=== PATIENT | female | born 1950 | race Caucasian/White ===

== ENCOUNTER → 2017-03-30 | Outpatient (CLI) | payer MEDICARE, OTHER | END | disposition home or self-care (01) | LOC: GMAH 14:50 | PROVIDERS: ATTEND Family Medicine | DX: N30.00 Acute cystitis without hematuria (principal) ==

== ENCOUNTER → 2017-05-11 | Outpatient (CLI) | payer MEDICARE, OTHER | LOC: GMA 20:39 | PROVIDERS: ATTEND Nurse Practitioner Family | DX: N30.00 Acute cystitis without hematuria (principal) ==

== ENCOUNTER → 2018-06-20 | Outpatient (CLI) | payer MEDICARE, OTHER | LOC: LAB.O 12:51 | PROVIDERS: ATTEND Ophthalmology | DX: M35.9 Systemic involvement of connective tissue, unspecified (principal); H20.012 Primary iridocyclitis, left eye ==

== ENCOUNTER → 2019-08-15 | Outpatient (CLI) | payer MEDICARE, OTHER ==
--- NOTE | 2019-08-15 16:16 | US ---
Thyroid Biopsy, Image-Guided: Biopsy of Thyroid: Ultrasound CLINICAL INFORMATION: 69 years Female. Nodule right lobe. COMPARISON: None. TECHNIQUE: Procedure was explained to the patient with risks and benefits. The patient gave verbal and written consent. Sterile preparation draping. 1% xylocaine dermal anesthetic 9-1 mixture with sodium bicarbonate. Sterile ultrasound guidance. A total of 6 passes right lobe thyroid nodule.; 4 needle samplings, 2 without and 2 with 10 cc syringe aspiration, using a separate 1.5 inch, 25-gauge needle per sample, and 2 aspirations, with a separate 1.5 inch, 25-gauge needle/10-cc syringe set, per aspiration. Each sample was placed on a separate slide and fixed in 95% alcohol container. [place] fluid drawn into aspirate needle and rinse injected into [place] container. Specimens to be sent for pathologic examination at remote facility. . Patient tolerated procedure well. Biopsy #: 1 Nodule reference number based on prior diagnostic ultrasound:1 Maximum size: 1.6 cm Location: right; mid ACR TI-RADS risk category: TR4 (4-6 points) Reason for biopsy: meets ACR TI-RADS criteria Complications: None. FINDINGS: Multiple images demonstrate the echogenic needle within the nodule/mass during sampling and aspirations. IMPRESSION: Successful ultrasound guided fine needle aspiration of right thyroid nodule. ACR TI-RADS Risk Category TR 4 Electronically signed by: Yohannes Penaloza MD 08/15/2019 4:15 PM CDT
== END ==
LOC: US 10:53
PROVIDERS: ATTEND Family Medicine
DX: E04.1 Nontoxic single thyroid nodule (principal)

== ENCOUNTER 2019-10-04 20:31 | Inpatient (IN) | payer MEDICARE, OTHER ==
[2019-10-04] MEDS ORDERED: MORPHINE SULFATE INJ 10 MG/ML VIAL IV ONE (20:45)
[2019-10-04] MEDS ORDERED: ONDANSETRON INJ 4 MG/2 ML VIAL IV ONE (20:46)
--- NOTE | 2019-10-04 21:32 | RAD ---
EXAM DESCRIPTION: Pelvis CLINICAL HISTORY: 69 years Female, pain s/p fall COMPARISON: None. FINDINGS: There is a mildly impacted left femoral neck fracture. No other bony or articular abnormalities noted. There is increased stool the colon. IMPRESSION: 1. Left femoral neck fracture. Electronically signed by: David Gann MD 10/04/2019 9:30 PM CDT
--- NOTE | 2019-10-04 21:32 | RAD ---
EXAM DESCRIPTION: Hip,Left 2 Views CLINICAL HISTORY: 69 years Female, left hip pain s/p fall COMPARISON: None. FINDINGS: There is a mildly impacted femoral neck fracture. The soft tissues are unremarkable. IMPRESSION: 1. Mildly impacted femoral neck fracture. Electronically signed by: David Gann MD 10/04/2019 9:31 PM CDT
--- NOTE | 2019-10-04 21:33 | RAD ---
EXAM DESCRIPTION: Chest,1 View CLINICAL HISTORY: 69 years Female, fall COMPARISON: None. FINDINGS: The heart and mediastinum are within normal limits. The lung torre are clear of active infiltrates. The pulmonary vascularity is unremarkable. No active pleural disease is present. The bony structures appear intact. IMPRESSION: 1. Normal study. Electronically signed by: David Gann MD 10/04/2019 9:31 PM CDT
--- NOTE | 2019-10-04 21:53 | ED.PDOC ---
History of Present Illness - General Chief Complaint: Trauma Stated Complaint: fall, left hip pain Time Seen by Provider: 10/04/19 20:41 Source: patient, RN notes reviewed, Vital Signs reviewed, family Exam Limitations: no limitations - History of Present Illness Initial Comments: The patient is a 69 year old with PMH as below who presents to the ED complaining of left hip pain. she was walking through her house when she tripped and fell, landed on her left hip. She has not been ambulatory since that time due to hip pain. She denies hitting her head or loss of consciousness. No weakness, numbness or tingling. No other complaints or injuries. Allergies/Adverse Reactions: Allergies Iodine Allergy (Verified 10/04/19 20:52) Nitrofurantoin [From Macrobid] Allergy (Verified 10/04/19 20:52) Home Medications: Ambulatory Orders Ciprofloxacin [Cipro] 250 mg PO DAILY 10/04/19 Esomeprazole Magnesium [Nexium] 20 mg PO DAILY 10/04/19 Ibuprofen [Motrin] 400 mg PO PRN 10/04/19 Multiple Vitamins W/ Minerals [Multivitamin Adults] 1 tab PO DAILY 10/04/19 Nebivolol HCl [Bystolic] 5 mg PO DAILY 10/04/19 Review of Systems - Review of Systems Constitutional: Denies: chills, fever, weakness EENTM: Denies: eye pain, blurred vision Respiratory: Denies: cough, short of breath Cardiology: Denies: chest pain, edema, palpitations Gastrointestinal/Abdominal: Denies: abdominal pain, diarrhea, nausea, vomiting Genitourinary: Denies: discharge, dysuria, frequency Musculoskeletal: States: joint pain, muscle pain. Denies: back pain, muscle stiffness Skin: States: no symptoms reported Neurological: Denies: tingling, weakness Endocrine: States: no symptoms reported Hematologic/Lymphatic: States: no symptoms reported Past Medical History (General) - Patient Medical History Hx Seizures: No Hx Stroke: No Hx Dementia: No Hx Asthma: No Hx of COPD: No Hx Cardiac Disorders: No Hx Congestive Heart Failure: No Hx Pacemaker: No Hx Hypertension: Yes Hx Thyroid Disease: No Hx Diabetes: No Hx Gastroesophageal Reflux: Yes Hx Renal Disease: No Hx Cancer: No Hx of HIV: No Hx Hepatitis C: No Hx MRSA: No - Vaccination History Hx Tetanus, Diphtheria Vaccination: No Hx Influenza Vaccination: No Hx Pneumococcal Vaccination: No - Social History Hx Tobacco Use: No Hx Alcohol Use: No Family Medical History - Family History Mother Family History: Unknown Physical Exam - Physical Exam General Appearance: Alert, Obvious distress Ears, Nose, Throat: hearing grossly normal Neck: non-tender, full range of motion, supple, normal inspection Respiratory: no respiratory distress, no accessory muscle use Cardiovascular/Chest: regular rate, rhythm Peripheral Pulses: dorsalis pedis,left: 2+ Gastrointestinal/Abdominal: non tender, soft Rectal Exam: deferred Back Exam: no CVA tenderness, no vertebral tenderness Extremity: other - tenderness to left hip, ROM is limited by pain Neurologic: no motor/sensory deficits, alert, oriented x 3 Progress - Progress Progress: 10/04/19 21:54 Patient with trip and fall, workup as below. No head injury. No c-spine tenderness. There is impacted femoral neck fracture of the left hip. Will plan to admit for surgical repair. 10/04/19 22:[address] Matias (ortho) who requests admit to hospitalist and he will consult for operative repair. Discussed with hospitalist Denzel Camacho who will admit. - Results/Orders Results/Orders: 10/04/19 21:09 EKG Assessment ONCE 10/04/19 21:15 EKG STAT Laboratory Results - last 24 hr 10/04/19 10/04/19 21:30 21:30 WBC 6.5 RBC 4.74 Hgb 13.4 Hct 40.2 MCV 84.9 MCH 28.3 MCHC 33.3 RDW 13.7 Plt Count 201 MPV 6.9 L Absolute Neuts (auto) 3.50 Absolute Lymphs (auto) 2.10 Absolute Monos (auto) 0.50 Absolute Eos (auto) 0.40 Absolute Basos (auto) 0.10 Neutrophils % 54.1 Lymphocytes % 32.2 Monocytes % 7.0 Eosinophils % 5.9 H Basophils % 0.8 Sodium 135 Potassium 3.5 L Chloride 102 Carbon Dioxide 24 Anion Gap 12.5 BUN 13 Creatinine 0.74 BUN/Creatinine Ratio 17.6 Random Glucose 94 Serum Osmolality 270.0 L Calcium 9.2 Total Bilirubin 0.4 AST 23 ALT 16 Alkaline Phosphatase 52 Serum Total Protein 7.0 Albumin 4.0 Globulin 3.0 Albumin/Globulin Ratio 1.3 - EKG/XRAY/CT Comments: 2119 NSR at 76, left axis, nl intervals, no STEMI Xray Comments: impacted left femoral neck fracture Departure - Departure Clinical Impression: Fracture of femur Qualifiers: Encounter type: initial encounter Femur location: neck, unspecified portion Fracture type: closed Laterality: left Qualified Code(s): S72.002A - Fracture of unspecified part of neck of left femur, initial encounter for closed fracture Time of Disposition: 22:32 Disposition: Admit Patient Condition: Fair Departure Forms: ED Discharge - Pt. Copy, Patient Portal Self Enrollment Instructions: DI for Trauma Referrals: Emery Gee MD [Primary Care Provider] - 1-2 Weeks Home Medications: Ambulatory Orders Ciprofloxacin [Cipro] 250 mg PO DAILY 10/04/19 Esomeprazole Magnesium [Nexium] 20 mg PO DAILY 10/04/19 Ibuprofen [Motrin] 400 mg PO PRN 10/04/19 Multiple Vitamins W/ Minerals [Multivitamin Adults] 1 tab PO DAILY 10/04/19 Nebivolol HCl [Bystolic] 5 mg PO DAILY 10/04/19 Decision To Admit - Decistion To Admit Decision to Admit Reason: Admit from ER Decision to Admit Date: 10/04/19 Decision to Admit Time: 22:33
[2019-10-05] MEDS ORDERED: SODIUM CHLORIDE 0.9% (FLUSH) 10 ML SYG IV PRN ×2 (00:07)
[2019-10-05] MEDS ORDERED: ONDANSETRON INJ 4 MG/2 ML VIAL IV PRN (00:12)
[2019-10-05] MEDS ORDERED: MORPHINE SULFATE INJ 10 MG/ML VIAL IV PRN (00:12)
[2019-10-05] MEDS ORDERED: ACETAMINOPHEN IV 1000MG 1,000 MG in PREMIX BOTTLE 1 BOTTLE IVPB ONE (00:17)
[2019-10-05] MEDS ORDERED: ACETAMINOPHEN IV 1000MG 100 ML ONE (00:27)
[2019-10-05] MEDS ORDERED: IV SET AND CAP CHANGE INJ INJ SCH ×2 (00:30→18:30)
[2019-10-05] MEDS: LACTATED RINGERS 1,000 ML IVS PRN ×2 (00:32→08:36)
[2019-10-05] MEDS: IV SET AND CAP CHANGE INJ INJ SCH (00:40)
[2019-10-05] MEDS ORDERED: PANTOPRAZOLE SODIUM IV 40 MG VIAL IV SCH (06:30)
[2019-10-05] MEDS ORDERED: ePHEDrine SULF 50 MG/ML ONE (07:00)
[2019-10-05] MEDS ORDERED: diphenhydrAMINE HCL 50 MG/ML VIAL ONE (07:00)
[2019-10-05] MEDS ORDERED: PROPOFOL 200 MG/20 ML VIAL IV ONE (07:00)
[2019-10-05] MEDS ORDERED: MAGNESIUM SULFATE INJ 1 GM/2 ML VIAL ONE (07:00)
[2019-10-05] MEDS ORDERED: METOCLOPRAMIDE HCL INJ 10 MG/2 ML VIAL ONE (07:00)
[2019-10-05] MEDS ORDERED: EPINEPHrine HCL AMP 1 MG/ML AMP ONE (07:00)
[2019-10-05] MEDS ORDERED: SODIUM CHLORIDE 0.9% 50 ML VIAL ONE (07:00)
[2019-10-05] MEDS ORDERED: DEXAMETHASONE INJ 10 MG/ML VIAL ONE (07:00)
[2019-10-05] MEDS ORDERED: GLYCOPYRROLATE 0.2 MG/ML VIAL ONE (07:00)
[2019-10-05] MEDS ORDERED: NEBIVOLOL 2.5 MG TAB ONE (08:34)
[2019-10-05] MEDS ORDERED: NON-FORMULARY MEDICATION 1 EA MIS (Esomeprazole Magnesium [Nexium] 40 MG) PO SCH (09:00)
[2019-10-05] MEDS ORDERED: NON-FORMULARY MEDICATION 1 EA MIS (Nebivolol Hcl [Bystolic] 5 MG) PO SCH (09:00)
--- NOTE | 2019-10-05 09:58 | HP ---
SUPERVISING PHYSICIAN: Celestino Rai MD CHIEF COMPLAINT: Left hip pain. HISTORY OF PRESENT ILLNESS: Ms. Vasquez is a 69-year-old female patient who presented to the Emergency Room last night complaining of left hip pain. She endorses she was walking in her house when she tripped and fell over a rug and landed on her left hip. She felt a pop and instant pain and was not able to ambulate. She denied any other trauma, no loss of consciousness, no head trauma, no weakness, no numbness or tingling. On arrival to the Emergency Room, workup included a hip x-ray that showed a mildly impacted left femoral neck fracture. Laboratory studies were unremarkable except for just a mildly low potassium of 3.5. Dr. Matias was consulted by the ER physician and has requested the patient be admitted for a hemiarthroplasty procedure to be performed 10/05/19. The patient is admitted in stable condition. PAST MEDICAL HISTORY: 1. Hypertension. 2. Gastroesophageal reflux disease. 3. Chronic urinary tract infections on ciprofloxacin. PAST SURGICAL HISTORY: 1. Esophageal [place] [address] Sotomayor. HOME MEDICATIONS: 1. Nexium 40 mg daily. 2. Cipro 250 mg daily. 3. Bystolic 5 mg daily. 4. Multivitamin 1 daily. 5. Motrin 400 mg p.r.n. ALLERGIES: IODINE, NITROFURANTOIN. FAMILY HISTORY: Father at age 73 secondary to myocardial infarction. Mother at age 56 secondary to cancer of the esophagus. She has one sister and multiple half brothers and sisters. SOCIAL HISTORY: The patient is . 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 She lives in [place] by herself. She has never smoked tobacco and drinks on a rare occasion. REVIEW OF SYSTEMS: CONSTITUTIONAL: Negative for any fevers, chills, general malaise or unexplained weight loss. HEENT: Negative for headaches, sore throats, earaches, nasal congestion, vision changes. RESPIRATORY: Negative for shortness of breath, wheezing or coughing. CARDIOVASCULAR: Negative for chest pain, palpitations or syncopal episodes. GASTROINTESTINAL: Negative for nausea, vomiting, diarrhea, constipation or abdominal pain. GENITOURINARY: History of frequent urinary tract infections, but denies any current dysuria, hematuria, polyuria. MUSCULOSKELETAL: As noted in history of present illness, left hip pain. Denies any back pain. SKIN: Negative for lesions or unexplained changes. NEUROLOGIC: Negative for paresthesias, weakness, ataxia, seizures or other neurologic deficits. HEMATOLOGIC: Negative for easy bruising, unexplained bleeding or transfusion reactions. PHYSICAL EXAMINATION: VITAL SIGNS: Temperature 98.3, pulse 81, blood pressure 125/72, respirations 18, saturation 99% on room air. GENERAL: The patient is resting comfortably and does not appear to be in any acute distress. She just received pain management. She is alert. HEENT: Tympanic membranes clear bilaterally. Oropharynx is pink, moist without any lesions. NECK: Supple, nontender with full range of motion. No jugular venous distention noted. RESPIRATORY: Lung sounds are clear to auscultation bilaterally without any rhonchi, wheezes or rales. CARDIOVASCULAR: Regular rate and rhythm without any appreciable murmurs, gallops, or rubs. ABDOMEN: Soft, nontender. Positive bowel sounds. RECTAL: Deferred. BACK: No CVA tenderness, no vertebral tenderness. EXTREMITIES: Tenderness to the left hip with range of motion limited by pain. No obvious shortening, medial or lateral rotation. Distally, pulses are strong. Capillary refill is brisk. NEUROLOGIC: Cranial nerves II-XII are grossly intact. The patient is alert and oriented times three. LABORATORY: CBC showed white count 6,500, hemoglobin 13.4, hematocrit 40.2, platelet count 201,000. Differential was without a left shift. Coagulation studies showed normal PT, PTT. Chemistries showed mildly low potassium of 3.5, otherwise electrolytes are within normal limits. Creatinine 0.74. Liver functions within normal limits. Glucose 94. Urinalysis showed trace of lysed blood. MICROBIOLOGY: No specimens are submitted. RADIOLOGY: Hip x-ray, pelvis x-ray demonstrated a mildly impacted left femoral neck fracture. Chest x-ray showed no abnormalities per radiologic interpretation. ASSESSMENT: 1. Status post ground level fall resulting in left hip fracture. 2. Hypertension. 3. Gastroesophageal reflux disease. 4. History of chronic urinary tract infections on ciprofloxacin. PLAN: Ms. Vasquez is going to be admitted for consultation with orthopedic services with Dr. Matias with anticipation of doing hemiarthroplasty the morning after admission. We will have her on pain control with morphine. I will go ahead and give her IV Tylenol initially to get good pain control. She will have antiemetics with Zofran and Phenergan as needed. We will review her medications and resume those as appropriate to her care. She is NPO overnight. We anticipate length of stay to be at least two to three days. Until the patient can transition to outpatient management, we will continue to monitor and treat as needed. #[id number] [facility]
[2019-10-05] MEDS ORDERED: BUPIVACAINE 0.5% 30 ML VIAL INJ ONE (10:19)
[2019-10-05] MEDS ORDERED: BUPIVACAINE LIPOSOME 13.3 MG/ML VIAL INJ ONE (10:20)
[2019-10-05] MEDS ORDERED: ceFAZolin SODIUM 2 GM in SODIUM CHLORIDE 0.9% 100ML 100 ML IVPB ONE (11:00)
[2019-10-05] MEDS ORDERED: VANCOMYCIN HCL INJ 1,000 MG in SODIUM CHLORIDE 0.9% 250ML 250 ML IVPB ONE (11:00)
[2019-10-05] MEDS ORDERED: KETAMINE HCL 100 MG/ML VIAL ONE (11:15)
[2019-10-05] MEDS ORDERED: MIDAZOLAM INJ 2 MG/2 ML VIAL ONE (11:15)
[2019-10-05] MEDS ORDERED: HYDROmorphone HCL INJ 2 MG/ML VIAL ONE (11:16)
[2019-10-05] MEDS ORDERED: VANCOMYCIN HCL INJ 1,000 MG VIAL IVPB ONE ×2 (11:30→18:56)
[2019-10-05] MEDS ORDERED: ceFAZolin SODIUM 1 GM VIAL IVPB ONE (11:45)
[2019-10-05] MEDS: ceFAZolin SODIUM 1 GM VIAL ONE ×3 (12:22→13:33)
[2019-10-05] MEDS: VANCOMYCIN HCL INJ 1,000 MG VIAL IVPB ONE ×2 (12:23→13:33)
[2019-10-05] MEDS ORDERED: ELECTROLYTE-A 1,000 ML IVS ONE ×2 (12:46→14:02)
--- NOTE | 2019-10-05 14:57 | RAD ---
EXAM DESCRIPTION: Pelvis CLINICAL HISTORY: 69 years Female, post op alexandr COMPARISON: 10/04/2019. TECHNIQUE: AP radiograph of the pelvis was performed. FINDINGS: Changes of left total hip arthroplasty are noted in the interim. Mild osteoarthritis of the right hip. The pelvic ring is intact. IMPRESSION: Changes of left total hip arthroplasty are noted in the interim. Mild osteoarthritis of the right hip. Electronically signed by: Donna Barr MD 10/05/2019 2:56 PM CDT
--- NOTE | 2019-10-05 14:58 | RAD ---
EXAM DESCRIPTION: Hip,Left 2 Views CLINICAL HISTORY: 69 years Female, post op alexandr COMPARISON: Radiographs of left hip dated 10/04/2019. FINDINGS: Changes of left total hip arthroplasty with expected postsurgical changes in the surrounding soft tissues. IMPRESSION: Changes of left hip arthroplasty with expected postsurgical changes in the surrounding soft tissues. Electronically signed by: Donna Barr MD 10/05/2019 2:56 PM CDT
[2019-10-05] MEDS ORDERED: VANCOMYCIN HCL INJ 1,000 MG in SODIUM CHLORIDE 0.9% 250ML 250 ML IVPB SCH (17:32)
[2019-10-05] MEDS ORDERED: ENOXAPARIN SODIUM 30 MG/0.3 ML SYG SUBCU SCH (17:32)
[2019-10-05] MEDS ORDERED: PROMETHAZINE HCL INJ 12.5 MG in SODIUM CHLORIDE 0.9% 50ML 50 ML IVPB PRN (18:03)
[2019-10-05] MEDS ORDERED: MORPHINE SULFATE INJ 10 MG/ML VIAL IM PRN (18:03)
[2019-10-05] MEDS ORDERED: PROMETHAZINE HCL INJ 25 MG in SODIUM CHLORIDE 0.9% 50ML 50 ML IVPB PRN (18:03)
[2019-10-05] MEDS ORDERED: ACETAMINOPHEN 500 MG TAB PO PRN (18:03)
[2019-10-05] MEDS: diphenhydrAMINE HCL 50 MG/ML VIAL IV PRN (18:17)
[2019-10-05] MEDS ORDERED: ceFAZolin SODIUM 1 GM VIAL ONE (18:56)
[2019-10-05] MEDS ORDERED: SODIUM CHLORIDE 0.9% 100ML 100 ML IVPB ONE (18:57)
[2019-10-05] MEDS ORDERED: SODIUM CHLORIDE 0.9% 250ML 250 ML ONE (18:57)
[2019-10-05] MEDS: ceFAZolin SODIUM 2 GM in SODIUM CHLORIDE 0.9% 100ML 100 ML IVPB SCH (19:37)
[2019-10-05] MEDS: ENOXAPARIN SODIUM 30 MG/0.3 ML SYG SUBCU SCH (20:47)
[2019-10-05] MEDS: VANCOMYCIN HCL INJ 1,000 MG in SODIUM CHLORIDE 0.9% 250ML 250 ML IVPB SCH (20:47)
[2019-10-05] MEDS: DOCUSATE CALCIUM 240 MG CAP PO SCH (20:47)
[2019-10-06] MEDS: diphenhydrAMINE HCL 50 MG/ML VIAL IV PRN ×3 (00:09→11:01)
[2019-10-06] MEDS ORDERED: hydrOXYzine HCl 10 MG TAB PO ONE (01:58)
[2019-10-06] MEDS: HYDROcodone 5MG/APAP 325MG 1 EA TAB PO PRN ×5 (02:18→21:14)
[2019-10-06] MEDS: ceFAZolin SODIUM 2 GM in SODIUM CHLORIDE 0.9% 100ML 100 ML IVPB SCH ×2 (03:42→14:33)
[2019-10-06] MEDS ORDERED: OMEPRAZOLE CAP 20 MG CAP ONE (05:10)
[2019-10-06] MEDS: OMEPRAZOLE CAP 20 MG CAP PO SCH (06:01)
[2019-10-06] MEDS ORDERED: NEBIVOLOL 2.5 MG TAB ONE (07:27)
--- NOTE | 2019-10-06 08:14 | OP ---
DATE OF PROCEDURE: 10/04/19 PREOPERATIVE DIAGNOSIS: 1. Left hip femoral neck fracture. POSTOPERATIVE DIAGNOSIS: 1. Left hip femoral neck fracture. PROCEDURE: 1. Left hemiarthroplasty. SURGEON: Agustin Matias MD. DREDGE OR BARGE SHORE HAND: Yohannes Mayes CST, SA-C. ANESTHESIA: General anesthesia. COMPLICATIONS: None. FINDINGS: Transcervical femoral neck fracture with no evidence of significant arthritis of the acetabulum. She had very osteoporotic bone with very thin shell of bone proximally. INDICATION: Ms. Vasquez had a fall from standing in which she sustained acute onset of pain in the hip. She was taken to the Emergency Room and x-rays revealed a transcervical neck fracture. Because of that, she was admitted and I had discussed with her the possibility of treatment. We discussed a total hip arthroplasty versus a hemiarthroplasty. We discussed the risks and benefits of each with the potential for cementation of prosthesis based on the quality of the bone. Because of the lack of arthritis and the somewhat less invasive nature of the hemiarthroplasty, she did give informed consent and requested that. PROCEDURE: The patient was brought to the Operating Room and placed in supine position. Anesthesia was induced and the patient was transitioned into the lateral decubitus position. The leg and hemipelvis were sterilely prepped and draped and an incision was made centered on the greater trochanter with extension both proximally and distally. Dissection was carried down to the iliotibial band which was sharply incised along the course of its fibers. A Charnley retractor was placed and the abductor musculature was identified. The anterior one-third of the abductor musculature was elevated off the greater trochanter using electrocautery and the capsule was incised. The femoral head was removed and the primary femoral neck cut was made. The acetabulum was examined and found to be free of any significant defect, therefore attention was focused on the femur. The femoral canal was sequentially broached until an appropriate sized trial prosthesis was placed. A trial femoral head was placed and the hip was reduced. The hip was taken through a full range of motion and demonstrated stability without impingement or pending dislocation and the leg length appeared to be paresthesias. Following trialing, the trial component was removed and the femoral canal was prepared for cementation of the prosthesis. A distal cement restrictor was placed and the final component was cemented into place. The excess cement was removed and the remaining cement was allowed to cure. The final head was impacted and the hip was reduced, taken through a full range of motion, and found to be stable without impingement. The wound was thoroughly irrigated and the abductor musculature was reapproximated to the greater trochanter through drill holes using Ethibond. The repair was augmented with PDS suture and the iliotibial band was subsequently closed. The subcutaneous tissues were closed with a combination of running and interrupted subcuticular stitches, a sterile dressing was placed, and the patient was transitioned into the supine position. The patient was awoken from anesthesia and taken to the Recovery Room in stable condition. POSTOPERATIVE PLAN: The patient will be weightbearing as tolerated on postoperative day 1. [facility][id number] [facility]
[2019-10-06] MEDS: CELECOXIB 100 MG CAP PO SCH ×2 (08:31→17:23)
[2019-10-06] MEDS: MAGNESIUM OXIDE 400 MG TAB PO SCH (08:32)
[2019-10-06] MEDS: NEBIVOLOL 2.5 MG TAB PO SCH (08:32)
[2019-10-06] MEDS: ENOXAPARIN SODIUM 30 MG/0.3 ML SYG SUBCU SCH ×2 (08:32→21:04)
[2019-10-06] MEDS: VANCOMYCIN HCL INJ 1,000 MG in SODIUM CHLORIDE 0.9% 250ML 250 ML IVPB SCH (08:33)
--- NOTE | 2019-10-06 14:18 | PN ---
SUPERVISING PHYSICIAN: Celestino Rai MD DATE: 10/06/19 SUBJECTIVE: The patient did well yesterday postoperative. She had a hemiarthroplasty done. She is sitting in a chair today, the pain is well- contracted. OBJECTIVE: VITAL SIGNS: Temperature 97.6, pulse 86, blood pressure 117/51 respirations are 18, oxygen saturation 99% on 2 liters nasal cannula. GENERAL: Patient is resting comfortably. Does not appear to be in acute distress. CHEST: Clear to auscultation. HEART: Regular rate and rhythm. ABDOMEN: Soft, nontender, positive bowel sounds. EXTREMITIES: Left hip has dressing place, clean and dry. Capillary refill is brisk. Pulses are strong. NEUROLOGIC: Alert and oriented x3. LABORATORY: Postoperative hemoglobin 10.8, hematocrit 32.3. ASSESSMENT: 1. Left hip fracture with hemiarthroplasty repair status post ground level fall. 2. Hypertension, stable. 3. Gastroesophageal reflux disease. 4. History of chronic urinary tract infections on ciprofloxacin. PLAN: We will continue to follow the patient as she continues with her postoperative management and rehabilitation efforts. At this point, we will discharge either tomorrow or Wednesday. She will continue with physical therapy and Home Health through [facility] once discharged. She will remain on DVT prophylaxis and transition to Xarelto on discharge. Her home medications have been resumed. She is tolerating her diet. I have encouraged good bronchial hygiene. Until we can transition her to outpatient management, we will continue to monitor and treat as needed #[id number] [facility]
[2019-10-06] MEDS: DOCUSATE CALCIUM 240 MG CAP PO SCH (21:04)
[2019-10-07] MEDS: HYDROcodone 5MG/APAP 325MG 1 EA TAB PO PRN ×3 (01:08→18:01)
[2019-10-07] MEDS: OMEPRAZOLE CAP 20 MG CAP PO SCH (06:03)
[2019-10-07] MEDS: CELECOXIB 100 MG CAP PO SCH ×2 (07:36→17:02)
[2019-10-07] MEDS: NEBIVOLOL 2.5 MG TAB PO SCH (08:33)
[2019-10-07] MEDS: MAGNESIUM OXIDE 400 MG TAB PO SCH (08:33)
[2019-10-07] MEDS: ENOXAPARIN SODIUM 30 MG/0.3 ML SYG SUBCU SCH ×2 (08:34→21:06)
[2019-10-07] MEDS: CIPROFLOXACIN 250 MG TAB PO SCH (10:11)
--- NOTE | 2019-10-07 11:47 | PN ---
DATE: 10/06/19 SUBJECTIVE: The patient is doing well on her pain as well as control. OBJECTIVE: She is afebrile. Vital signs shoaib stable. Dressing is clean, dry and intact. ASSESSMENT: Status post hemiarthroplasty for hip fracture. PLAN: At this point she is to begin weightbearing as tolerated. [facility][id number] [facility]
--- NOTE | 2019-10-07 11:50 | PN ---
DATE: 10/07/19 SUBJECTIVE: The patient is doing well and her pain is well controlled. She is up to a chair at this time. OBJECTIVE: She is afebrile. Vital signs shoaib stable. Her wound is clean, there are no signs or symptoms of infection. ASSESSMENT: Status post hemiarthroplasty for hip fracture. PLAN: At this point she is to continue on with her weightbearing as tolerated status. She will be discharged tomorrow. #[id number] [facility]
--- NOTE | 2019-10-07 13:01 | PN ---
SUPERVISING PHYSICIAN: Celestino Rai MD DATE: 10/07/19 SUBJECTIVE: The patient is doing well today. Said her pain is controlled with just [place]. She had a little bit of nausea with breakfast that resolved without any intervention. She has not had any complaints of shortness of breath or chest pain. OBJECTIVE: VITAL SIGNS: Temperature 98.9, pulse 89, blood pressure 172/80 respirations are 18, oxygen saturation 94% on room air. . GENERAL: Patient is resting comfortably. Does not appear to be in acute distress. CHEST: Clear to auscultation bilaterally. HEART: Regular rate and rhythm. ABDOMEN: Soft, nontender, positive bowel sounds. EXTREMITIES: Without any edema. Left hip has dressing in place which is clean and dry. Distal pulses are strong. Capillary refill is brisk. NEUROLOGIC: Alert and oriented x3. LABORATORY: No laboratory to report. . ASSESSMENT: 1. Left hip fracture with hemiarthroplasty repair status post ground level fall, postoperative day #2. 2. Hypertension, stable. 3. Gastroesophageal reflux disease. 4. History of chronic urinary tract infections on ciprofloxacin. PLAN: We will continue with postoperative management with physical therapy and rehabilitation. She is progressing well. I anticipate discharge tomorrow. She will go home on DVT prophylaxis with Xarelto. Dr. Matias has written her a prescription for [place]. Until we can transition her to outpatient management, we will continue physical therapy through [facility] and continue to monitor and treat as needed #[id number] [facility]
[2019-10-07] MEDS: CYCLOBENZAPRINE HCL 10 MG TAB PO PRN (21:06)
[2019-10-07] MEDS: DOCUSATE CALCIUM 240 MG CAP PO SCH (21:09)
[2019-10-07] MEDS: IV SET AND CAP CHANGE INJ INJ SCH (23:43)
[2019-10-08] MEDS: HYDROcodone 5MG/APAP 325MG 1 EA TAB PO PRN ×2 (02:45→09:44)
[2019-10-08] MEDS: OMEPRAZOLE CAP 20 MG CAP PO SCH (06:11)
[2019-10-08] MEDS: CYCLOBENZAPRINE HCL 10 MG TAB PO PRN (06:12)
[2019-10-08 06:25] VITALS: TEMP 98.3
[2019-10-08] MEDS: CIPROFLOXACIN 250 MG TAB PO SCH (08:17)
[2019-10-08] MEDS: NEBIVOLOL 2.5 MG TAB PO SCH (08:17)
[2019-10-08] MEDS: ENOXAPARIN SODIUM 30 MG/0.3 ML SYG SUBCU SCH (08:17)
[2019-10-08] MEDS: CELECOXIB 100 MG CAP PO SCH (08:17)
[2019-10-08] MEDS: MAGNESIUM OXIDE 400 MG TAB PO SCH (08:17)
[2019-10-08 09:37] VITALS: BP 122/80; O2SAT 98
[2019-10-08] MEDS ORDERED: MAGNESIUM HYDROXIDE 30 ML UD PO ONE (21:00)
[2019-10-08] MEDS ORDERED: BISACODYL SUPPOSITORY 10 MG PR ONE (21:00)
--- NOTE | 2019-11-06 09:10 | DS ---
SUPERVISING PHYSICIAN: Celestino Rai MD ADMISSION DIAGNOSIS: 1. Status post ground level fall resulting in left hip fracture. 2. Hypertension. 3. Gastroesophageal reflux disease. 4. History of chronic urinary tract infections on ciprofloxacin. DISCHARGE DIAGNOSIS: 1. Left hip fracture with hemiarthroplasty repair status post ground level fall, postoperative day #3. 2. Hypertension, stable. 3. Gastroesophageal reflux disease. 4. History of chronic urinary tract infections on ciprofloxacin. REASON FOR HOSPITALIZATION: Ms. Vasquez is a 69-year-old female patient who presented to the Emergency Room last night complaining of left hip pain. She endorses she was walking in her house when she tripped and fell over a rug and landed on her left hip. She felt a pop and instant pain and was not able to ambulate. She denied any other trauma, no loss of consciousness, no head trauma, no weakness, no numbness or tingling. On arrival to the Emergency Room, workup included a hip x-ray that showed a mildly impacted left femoral neck fracture. Laboratory studies were unremarkable except for just a mildly low potassium of 3.5. Dr. Matias was consulted by the ER physician and has requested the patient be admitted for a hemiarthroplasty procedure to be performed 10/05/19. The patient is admitted in stable condition. LABORATORY: White count was normal at 6,500, hemoglobin 13.4, hematocrit 40.2 on admission. Postoperative hemoglobin 10.8 and hematocrit 32.3. Coagulation studies showed normal PT, PTT. Discharge BMP showed sodium 133. Other electrolytes were within normal limits. Creatinine 0.71. Liver functions were all within normal limits. Urinalysis just showed a trace of lysed blood. MICROBIOLOGY: No specimens were submitted. RADIOLOGY: Multiple x-rays preoperatively showed hip x-ray and pelvis x-ray showed a mildly impacted femoral neck fracture. Preoperative chest x-ray showed normal study per radiologic interpretation. EKG preoperatively showed normal sinus rhythm without any ST or T wave changes to indicate ischemia. Postoperatively, pelvis and hip x-ray primarily showed changes of left hip arthroplasty and stable postsurgical changes in surrounding soft tissue. See those reports for details. CONSULTATION: Agustin Matias MD. PROCEDURE: Left hemiarthroplasty. Please see Dr. Matias's operative notes for details. HOSPITAL COURSE: Ms. Vasquez was admitted after she sustained a same level fall resulting in a left hip fracture. She was worked up preoperatively and then taken to surgery where Dr. Matias did a hemiarthroplasty procedure. The patient did well postoperatively. She did well with physical therapy and was progressing well enough to continue with outpatient management through [facility]. She was instructed to followup with Dr. Matias on 11/03/19 at 9:15 am. She was to resume her usual diet and activity as per physical therapy utilizing a walker. Postoperative wound instructions per Dr. Matias. She was to resume all previous medications prior to hospitalization. Arrangements were made with [facility] for physical therapy postoperatively. MEDICATIONS PRESCRIBED ON DISCHARGE: 1. [place] by Dr. Matias 5/325 mg 1 tablet q.4h. as needed, #30, no refills. 2. Xarelto 10 mg daily for 26 days, #26, no refills. All other medications prior to hospitalization were continued. CONDITION ON DISCHARGE: Stable and improving. DISPOSITION: The patient was discharged home with [facility]. #[id number] MTDD
== END 2019-10-08 12:30 | disposition home health service (06) | DRG 470 ==
LOC: ER 20:31 → MS 23:18 → OBSVTOIN 23:18
PROVIDERS: ADMIT Nurse Practitioner Family; ATTEND Nurse Practitioner Family
PROC: 0SRS0JA Replacement of Left Hip Joint, Femoral Surface with Synthetic Substitute, Uncemented, Open Approach (ICD-10-PCS; principal; 2019-10-04)
DX: S72.002A Fracture of unspecified part of neck of left femur, initial encounter for closed fracture (principal); N39.0 Urinary tract infection, site not specified; W01.0XXA Fall on same level from slipping, tripping and stumbling without subsequent striking against object, initial encounter; Y92.009 Unspecified place in unspecified non-institutional (private) residence as the place of occurrence of the external cause; I10 Essential (primary) hypertension; K21.9 Gastro-esophageal reflux disease without esophagitis; Z79.1 Long term (current) use of non-steroidal anti-inflammatories (NSAID); Z91.048 Other nonmedicinal substance allergy status; Z88.3 Allergy status to other anti-infective agents

== ENCOUNTER → 2019-11-03 | Outpatient (CLI) | payer MEDICARE, OTHER ==
--- NOTE | 2019-11-03 10:30 | RAD ---
EXAM DESCRIPTION: Hip,Left 2 Views CLINICAL HISTORY: 69 years Female, PAIN IN LEFT HIP COMPARISON: October 05, 2019 FINDINGS: Two views of the left hip again show postoperative changes related to previous arthroplasty without loosening or other hardware complication. No periprosthetic or other fracture. The soft tissues are unremarkable. IMPRESSION: Uncomplicated postoperative changes in the left hip. Electronically signed by: Romaine Sheehan MD 11/03/2019 10:29 AM CDT
== END ==
LOC: RAD 09:07
PROVIDERS: ATTEND Orthopaedic Surgery
DX: M25.552 Pain in left hip (principal); Z98.890 Other specified postprocedural states

== ENCOUNTER → 2019-12-15 | Outpatient (CLI) | payer MEDICARE, OTHER ==
--- NOTE | 2019-12-15 17:43 | RAD ---
EXAM DESCRIPTION: Hip,Left 2 Views CLINICAL HISTORY: CLOSED FRACTURE OF NECK LEFT COMPARISON: 03 November 2019 TECHNIQUE: 2 views left FINDINGS: A left hip arthroplasty is observed in place. There is no evidence of loosening or infection. The exam is unchanged from the prior. IMPRESSION: Left hip arthroplasty. Electronically signed by: Jed Luis MD 12/15/2019 5:41 PM CDT
== END ==
LOC: RAD 09:01
PROVIDERS: ATTEND Orthopaedic Surgery
DX: S72.002D Fracture of unspecified part of neck of left femur, subsequent encounter for closed fracture with routine healing (principal); Z98.890 Other specified postprocedural states; Z96.642 Presence of left artificial hip joint

== ENCOUNTER → 2020-01-24 | Outpatient (CLI) | payer MEDICARE, OTHER | LOC: GMA MATASK 14:20 | PROVIDERS: ATTEND Family Medicine | DX: R30.0 Dysuria (principal) ==

== ENCOUNTER → 2020-02-05 | Outpatient (CLI) | payer MEDICARE, OTHER | LOC: GMA MATASK 14:36 | PROVIDERS: ATTEND Family Medicine | DX: I10 Essential (primary) hypertension (principal) ==